=== PATIENT | male | born 1945 | race African-American/Black ===

== ENCOUNTER 2016-08-11 10:02 | Inpatient (IN) ==
[2016-08-11] MEDS ORDERED: ONDANSETRON 4 MG/2 ML VIAL IV STA (10:14)
[2016-08-11] MEDS ORDERED: methylPREDNISolone SOD SUC 125 MG/2 ML VIAL IV STA (10:14)
[2016-08-11] MEDS ORDERED: MORPHINE 2 MG/1 ML SYRINGE IV STA (10:14)
[2016-08-11] MEDS ORDERED: cefTRIAXone 1,000 MG in SODIUM CHLORIDE 0.9% 100 ML IV STA (10:14)
[2016-08-11] MEDS ORDERED: ASPIRIN 325 MG TABLET PO STA (10:14)
[2016-08-11] MEDS ORDERED: FUROSEMIDE 100 MG/10 ML VIAL IV STA (10:14)
[2016-08-11] MEDS ORDERED: ALBUTEROL 2.5 MG/3 ML NEB RESP TX SCH (10:30)
[2016-08-11] MEDS ORDERED: FUROSEMIDE 40 MG/4 ML VIAL ONE (10:44)
[2016-08-11] MEDS ORDERED: ONDANSETRON 4 MG/2 ML VIAL ONE (10:44)
[2016-08-11] MEDS ORDERED: MORPHINE 2 MG/1 ML SYRINGE ONE (10:44)
[2016-08-11] MEDS ORDERED: methylPREDNISolone SOD SUC 125 MG/2 ML VIAL ONE (10:45)
[2016-08-11] MEDS ORDERED: FUROSEMIDE 20 MG/2 ML VIAL ONE (10:45)
[2016-08-11] MEDS ORDERED: ASPIRIN 325 MG TABLET ONE (10:45)
--- NOTE | 2016-08-11 10:47 | XRay Report ---
Exam: XR chest 1V portable Date: 08/11/2016 10:16 AM Indication: Shortness of breath Comparison: 07/16/2009 Technical: AP Findings: Surgical suture scarring over the left chest. The heart is at upper limits of normal. Mild interstitial alveolar densities are present in the base regions. External cardiac leads are present. No obvious pneumothorax present. ASVD is present. Impression: 1. Previous lung resection left lateral chest 2. Alveolar interstitial edema with mild cardiac decompensation suspected 3. ASVD. PROCEDURE INTERPRETED AT [facility] DEPARTMENT OF RADIOLOGY Final Report Signed by: Dr. Fei Decker
--- NOTE | 2016-08-11 10:47 | Emergency Department Note ---
Navid Mckeon [place], am scribing for, and in the presence of, Hill Garay MD 10:22. Tanisha Mckeon Charles R, MD, personally performed the services described in this documentation, ascribed by Milad Shoemaker in my presence, and it is both accurate and complete . Arrival - Arrival Chief Complaint: Shortness of Breath ED Nursing Triage Note: c/o sob onset last night. pt takes a fluid pill and states that its not helping. Mode of Arrival: Stretcher Limitations: No Limitations Source: Patient Time Seen by Provider: 08/11/16 10:11 - History of Present Illness HPI Narrative: This is a 71 y/o black male presenting to the ED with c/o SOB that onset last night. He states he is currently taking his fluid pill but it is not working. Pt has a strong respiratory effort. His PMHx is consistent with HTN and COPD. He has a social history of smoking. Pt denies REBOLLEDO, vision change, fever, chills, nausea, vomiting, diarrhea, and pedal edema. Consistency: constant Severity: moderate Allergies/Adverse Reactions: Allergies Allergy/AdvReac Type Severity Reaction Status Date / Time No Known Allergies Allergy Unverified 08/11/16 10:24 Home Medications: Home Medications Medication Instructions Recorded Confirmed Type Acetamin/Codeine 300-30 Tab 1 - 2 tablet PO Q6H PRN 08/11/16 08/11/16 History [Tylenol/Codeine #3] Benztropine Mesylate 2 mg PO BID 08/11/16 08/11/16 History Enalapril Maleate 5 mg PO BID 08/11/16 08/11/16 History Potassium Chloride 20 meq PO DAILY 08/11/16 08/11/16 History fluPHENAZine decanoate 0.5 ml IJ Q21D 08/11/16 08/11/16 History [Fluphenazine Decanoate] Review of System - Review of System 12 point system: reviewed and no additional remarkable complaints except as stated - Review of System Constitutional: Absent: chills, fever, weakness Eyes: Absent: vision change Head/Ears/Nose/Throat: Absent: earache, nasal drainage Respiratory: Present: wheezing. Absent: cough Cardiovascular: Present: dyspnea on exertion. Absent: chest pain, syncope Gastrointestinal: Absent: abdominal pain, nausea, vomiting, diarrhea Genitourinary male: Absent: dysuria Musculoskeletal: Absent: arm pain, back pain, leg pain, neck pain Skin: Absent: rash Neurological: Absent: headache, weakness, numbness, confusion, vertigo Psychiatric: Absent: anxiety Endocrine: Absent: fatigue Hematological/Lymphatic: Absent: easy bleeding Allergic/Immunologic: Absent: facial swelling Medical,Surgical,& Family Hx - Medical History Cardio: History of: Hypertension Respiratory: History of: COPD - Social History Smoking Status: Smoker, status unknown Frequency of Alcohol Use: None Type of Drug Use: None Exam Vital Signs: Vital Signs Temperature 98.0 F 08/11/16 10:07 Pulse Rate 98 H 08/11/16 10:07 Respiratory Rate 40 H 08/11/16 10:07 Blood Pressure 136/109 08/11/16 10:07 O2 Sat by Pulse Oximetry 96 08/11/16 10:07 - General General appearance: alert, in distress (mild respiratory distress ), other ( malnourished ) - Head Head exam: Present: atraumatic, normocephalic, other (temporal wasting ) - Eye Eye exam: Present: normal appearance, PERRL, EOMI - ENT ENT exam: Present: normal exam, normal oropharynx, mucous membranes moist, TM's normal bilaterally, normal external ear exam - Neck Neck exam: Present: full ROM, trachea midline, other (JVD distention ). Absent : tenderness - Chest Chest inspection: Present: symmetric chest wall rise, other (barrel chest ). Absent: normal inspection, tenderness - Respiratory Respiratory exam: Present: accessory muscle use, rales, wheezes, other (crackles ; decreased breath sounds bilaterally; strong respiratory effort ). Absent: normal lung sounds bilaterally - Cardiovascular Cardiovascular exam: Present: normal rhythm, tachycardia. Absent: regular rate , normal heart sounds (muffled ) - Abdominal Exam Abdominal exam: Present: soft, normal bowel sounds. Absent: distention, tenderness - Extremities Exam Extremities exam: Present: normal inspection, full ROM, normal capillary refill. Absent: tenderness, pedal edema, calf tenderness - Back Exam Back exam: Present: normal inspection, full ROM. Absent: tenderness - Neurological Exam Neurological exam: Present: alert, oriented X3, CN II-XII intact, normal gait, reflexes normal - Psychiatric Psychiatric exam: Present: normal affect, normal mood - Skin Skin exam: Present: warm, dry, intact, normal color. Absent: rash, diaphoresis Course - Consultations Consultation #1: Hospitalist will admit patient Time: 11:16 Results - Labs CBC & BMP: 08/11/16 10:56 08/11/16 10:56 Lab Results: I have reviewed the patients labs Labs: Laboratory Tests 08/11/16 08/11/16 10:49 10:56 WBC 19.2 H RBC 4.66 Hgb 13.9 L Hct 41.8 L MCV 89.7 MCH 30 MCHC 33.3 RDW 13.8 Plt Count 199 MPV 11.3 Neut % (Auto) 10.9 L Lymph % (Auto) 71.6 H [place] % (Auto) 16.7 H Eos % (Auto) 0.5 Baso % (Auto) 0.2 Neut # (Auto) 2.1 Lymph # (Auto) 13.7 H [place] # (Auto) 3.2 H Eos # (Auto) 0.1 Baso # (Auto) 0.0 Immature Gran % 0.1 Nucleated RBC % 0.0 Immature Gran # 0.01 Nucleated RBCs # 0.00 ABG pH 7.367 ABG pCO2 48.4 H ABG pO2 80.2 ABG HCO3 27.2 H ABG Total CO2 28.6 H ABG O2 Saturation 94.8 L ABG Base Excess 1.2 FiO2 28.00 - Diagnostic Findings Procedure: Chest x-ray: image reviewed by me (previous lung resection left lateral chest; alveolar interstitial edema with mild cardiac decompensation suspected; ASVD. ) Critical Care Time Critical Care Time: Yes Total Critical Care Time: 60 Disposition Clinical Impression: Leukocytosis, Acute COPD exacerbation, Acute exacerbation of CHF (congestive heart failure), Hypoxia, Respiratory distress Case discussed with: patient Disposition: Still a Patient Condition: Guarded Time of Disposition: 11:17
[2016-08-11 11:04] LABS: ABG Base Excess 1.2 MMOL/L (-2.5-2.5); ABG HCO3 27.2 MMOL/L (20-26); ABG Oxygen Saturation 94.8 % (95-100); ABG PCO2 48.4 MM HG (35-48); ABG PH 7.367 (7.35-7.45); ABG PO2 80.2 MM HG (80-95); ABG TCO2 28.6 MMOL/L (23-27); Allen Test Positive
[2016-08-11 11:06] LABS: Basophils % 0.2 % (0.0-0.8); Eosinophils # 0.1 10*3/uL (0.0-0.87); Eosinophils % 0.5 % (0.00-10.9); Hematocrit 41.8 VOL% (42.0-52.0); Hemoglobin 13.9 GM/DL (14.0-18.0); Immature Granulocytes % 0.1 %; Immature Granulocytes Absolute 0.01 #; Lymphocytes # 13.7 10*3/uL (1.4-4.0); Lymphocytes % 71.6 % (21.2-54.2); Mean Corpuscular HGB Conc 33.3 GM/DL (32-36); Mean Corpuscular Hemoglobin 30 PG (27-34); Mean Corpuscular Volume 89.7 FL (87-102); Mean Platelet Volume 11.3 FL (9.6-12.0); Monocytes # 3.2 10*3/uL (0.11-0.8); Monocytes % 16.7 % (1.7-12.7); Neutrophils # 2.1 10*3/uL (1.4-7.4); Neutrophils % 10.9 % (38.7-73.9); Platelet Count 199 T/CUMM (130-400); Red Blood Count 4.66 MC/CUMM (3.8-5.5); Red Cell Distribution Width 13.8 % (9.3-17.3); White Blood Count 19.2 T/CUMM (4-12)
[2016-08-11 11:17] LABS: D-Dimer 0.6 MG/L FEU
[2016-08-11 11:31] LABS: Atypical Lymphocytes Few; Hypochromasia 1+; Lymphocytes 81 % (20-55); Segmented Neutrophils 12 % (50-85); Smudge Cells Few; Total Cells Counted 100
[2016-08-11 11:32] LABS: Microcytosis Slight; Platelet Estimate Adequate
[2016-08-11 11:37] LABS: Alanine Aminotransferase 50 U/L (16-61); Albumin 3.6 G/DL (3.4-5.0); Alkaline Phosphatase 90 U/L (45-117); Aspartate Amino Transferase 39 U/L (0-37); Bilirubin,Total < 0.39 MG/DL (0.2-1.0); Blood Urea Nitrogen 15 MG/DL (7-18); Calcium 8.7 MG/DL (8.5-10.1); Glucose 99 MG/DL (74-106); Magnesium 2.1 MG/DL (1.8-2.4); Osmolality,Calculated 281.3 MOS/KG (273-304); Potassium 4.5 MMOL/L (3.5-5.1); Sodium 141 MMOL/L (136-145); Total Protein 6.8 G/DL (6.4-8.3)
[2016-08-11 11:38] LABS: Troponin I Only 0.065 NG/ML (0.00-0.045)
--- NOTE | 2016-08-11 12:00 | Hospitalist History & Physical ---
Assessment and Plan (1) Compensated respiratory acidosis Status: Acute Assessment and plan: Respiratory status has slightly improved since diuresis; may need bi-pap if conditions worsens. Current Visit: Yes (2) Acute on chronic congestive heart failure Status: Acute Assessment and plan: BNP at 1722; we will diurese and recheck chest x-ray in AM. Will obtain echo to assess structural function. Current Visit: Yes (3) Leukocytosis Status: Acute Assessment and plan: WBC noted at 19.2; will obtain denise cultures and start empiric antibiotic coverage. Will recheck labs in AM. Current Visit: Yes History of Present Illness Chief complaint: shortness of breath History of present illness: This is a very pleasant 71 year old male that presented to the ED at [facility] with a chief compliant of shortness of breath. The patient has a rather complex medical history significant for congestive heart failure, hypertension, schizophrenia, and nicotine abuse. He reported the onset of symptoms on last night . He states "my fluid pill is not working". At the time of ED presentation, he was noted to be in respiratory distress with use of his accessory muscles. He was quickly assessed. He was given Lasix 60 mg IV and inhaled bronchodilators. Labs were obtained which revealed leukocytosis with a white blood cell count at 19.2 and BNP at 1722. Cardiac enzymes were noted at 0.065. ABG was obtained; which reported a PH at 7.367, PCO2 at 48.4, and HCO3 at 28.6. Chest radiograph showed the presence of a previous lung resection left lateral chest; alveolar interstitial edema with mild cardiac decompensation suspected; ASVD. After brief discussion with both Dr. Garay and Dr. Stubbs, the patient will be admitted to the hospitalist service for continuation of care. Home Medications Medication Instructions Recorded Confirmed Type Acetamin/Codeine 300-30 Tab 1 - 2 tablet PO Q6H PRN 08/11/16 08/11/16 History [Tylenol/Codeine #3] Benztropine Mesylate 2 mg PO BID 08/11/16 08/11/16 History Enalapril Maleate 5 mg PO BID 08/11/16 08/11/16 History Potassium Chloride 20 meq PO DAILY 08/11/16 08/11/16 History fluPHENAZine decanoate 0.5 ml IJ Q21D 08/11/16 08/11/16 History [Fluphenazine Decanoate] Allergies Allergy/AdvReac Type Severity Reaction Status Date / Time No Known Allergies Allergy Unverified 08/11/16 10:24 Medical,Surgical,& Family Hx - Medical History Cardio: History of: Hypertension Respiratory: History of: COPD Other: History of: Miscellaneous Medical Problems (Schizophrenia) - Social History Smoking Status: Current every day smoker Have you smoked in the last 12 months: Yes Time spent discussing smoking cessation with patient: more than 10 minutes Frequency of Alcohol Use: None Type of Drug Use: None 12 point system: reviewed and no additional remarkable complaints except as stated Exam - Constitutional Vitals: Period Temp Pulse Resp BP Sys/Gonzalez Pulse Ox Last 24 Hr 98.0 F-98.0 F 98-98 40-40 136-136/109-109 96 General appearance: severe distress, under weight - Head Head exam: Present: normal inspection, atraumatic - Eye Eye exam: Present: EOMI. Absent: conjunctival injection Pupils: Present: TAMIKO, normal accommodation - ENT ENT exam: Present: normal exam, normal external ear exam - Neck Neck exam: Present: normal inspection. Absent: lymphadenopathy, meningismus, tenderness, thyromegaly - Respiratory Respiratory exam: Present: accessory muscle use, rales - Cardiovascular Cardiovascular exam: Present: regular rate and rhythm. Absent: carotid bruit, diastolic murmur, gallop, JVD, rubs - GI/Abdominal GI/Abdominal exam: Present: normal bowel sounds, soft. Absent: firm, guarding, mass - Extremities Exam Extremities exam: Present: normal inspection, normal capillary refill, full ROM. Absent: edema - Back Exam Back exam: Present: normal inspection - Neurological Exam Neurological exam: Present: alert, oriented X3, CN II-XII intact - Psychiatric Psychiatric exam: Present: anxious - Skin Skin exam: Present: normal color, warm, dry Results - Labs CBC & BMP: 08/11/16 10:56 08/11/16 10:56 Lab Results: I have reviewed the past 24 hour labs
[2016-08-11] MEDS ORDERED: cefTRIAXone 1,000 MG VIAL ONE (13:19)
[2016-08-11] MEDS ORDERED: FLUPHENAZINE DECANOATE IJ SCH (15:08)
[2016-08-11] MEDS: CARVEDILOL 6.25 MG TABLET PO SCH (16:40)
--- NOTE | 2016-08-11 16:53 | ECHO Report ---
Elizabeth Donovan Exam Date: 08/11/2016 13:50 Referring Physician: Technologist: Bernie Rendon Age: 71 Ht (in): 71 Wt (lb): 145 Gender: M Exam Location: [facility] Echo Indications: BP: 136 / 109 HR: 74 Rhythm: Sinus Technical Quality: IMPRESSIONS Normal left ventricular cavity size. Left ventricular ejection fraction is estimated at 25 %. Grade III/IV diastolic dysfunction (restrictive filling pattern), severely elevated filling pressures. The right ventricle is normal in size and function. The right atrium is mildly enlarged. The left atrium is mildly enlarged. Mildly thickened mitral valve. Trace mitral valve regurgitation. Aortic valve sclerosis. Trace aortic valve regurgitation. Mild tricuspid valve regurgitation. PAP40 mmHg. Trace pulmonary valve regurgitation. Normal pericardium without effusion. Normal ascending aorta dimension. MEASUREMENTS (Male / Female) Normal Values 2D ECHO LV Diastolic Diameter PLAX 5.7 cm 4.2 - 5.9 / 3.9 - 5.3 cm LV Systolic Diameter PLAX 5.1 cm LV Fractional Shortening PLAX 11.5 % IVS Diastolic Thickness 1.1 cm 0.6 - 1.0 / 0.6 - 0.9 cm LVPW Diastolic Thickness 1.2 cm 0.6 - 1.0 / 0.6 - 0.9 cm RV Internal Dim ED PLAX 3.7 cm Aortic Root Diameter 3.5 cm LA Systolic Diameter LX 4.0 cm 3.0 - 4.0 / 2.7 - 3.8 cm DOPPLER TR Peak Velocity 274.0 cm/s TR Peak Gradient 30.0 mmHg FINDINGS Left Ventricle Normal left ventricular cavity size. Left ventricular ejection fraction is estimated at 25 %. left ventricular hypertrophy. Grade III/IV diastolic dysfunction (restrictive filling pattern), severely elevated filling pressures. Right Ventricle The right ventricle is normal in size and function. Right Atrium The right atrium is mildly enlarged. Left Atrium The left atrium is mildly enlarged. Mitral Valve Mildly thickened mitral valve. Trace mitral valve regurgitation. Aortic Valve Aortic valve sclerosis. Trace aortic valve regurgitation. Tricuspid Valve Morphologically normal tricuspid valve. Mild tricuspid valve regurgitation. PAP40 mmHg. Pulmonic Valve Morphologically normal pulmonic valve. Trace pulmonary valve regurgitation. Pericardium Normal pericardium without effusion. Aorta Normal ascending aorta dimension. Gerry Anurag (Electronically Signed) Final Date: 11 Aug 2016 16:52
[2016-08-11] MEDS: ENALAPRIL 10 MG TABLET PO SCH (20:53)
[2016-08-11] MEDS: BENZTROPINE 1 MG TABLET PO SCH (20:53)
[2016-08-11 22:21] LABS: Apearance,Urine CLEAR (Clear); Bilirubin,Urine Negative (Negative); Blood, Urine Negative (Negative); Glucose,Urine (UA) Negative (Negative); Ketones,Urine Negative (Negative); Nitrite,Urine Negative (Negative); Protein,Urine Negative; RBC,Urine 1 /HPF (0-4); Urine Color Yellow (Yellow); Urine Specific Gravity 1.015 (1.001-1.035); Urine Urobilinogen < 2.0 EU/DL (0.2-1.0); WBC,Urine <1 /HPF (0-6)
[2016-08-12 01:16] LABS: Basophils % 0.1 % (0.0-0.8); Hematocrit 38.3 VOL% (42.0-52.0); Hemoglobin 12.8 GM/DL (14.0-18.0); Immature Granulocytes % 0.2 %; Immature Granulocytes Absolute 0.04 #; Lymphocytes # 16.2 10*3/uL (1.4-4.0); Lymphocytes % 74.9 % (21.2-54.2); Mean Corpuscular HGB Conc 33.4 GM/DL (32-36); Mean Corpuscular Hemoglobin 29 PG (27-34); Mean Platelet Volume 12.1 FL (9.6-12.0); Monocytes # 1.9 10*3/uL (0.11-0.8); Monocytes % 8.8 % (1.7-12.7); NRBC # 0.02 10*3/uL; Neutrophils # 3.5 10*3/uL (1.4-7.4); Platelet Count 215 T/CUMM (130-400); Red Blood Count 4.35 MC/CUMM (3.8-5.5); Red Cell Distribution Width 13.6 % (9.3-17.3); White Blood Count 21.7 T/CUMM (4-12)
[2016-08-12 01:44] LABS: Calcium 8.5 MG/DL (8.5-10.1); Osmolality,Calculated 282.4 MOS/KG (273-304); Potassium 4.6 MMOL/L (3.5-5.1)
[2016-08-12 02:58] LABS: Lymphocytes 72 % (20-55); Segmented Neutrophils 25 % (50-85); Smudge Cells Few; Total Cells Counted 100
[2016-08-12 02:59] LABS: Platelet Estimate Adequate; Target Cells Slight
[2016-08-12] MEDS: CARVEDILOL 6.25 MG TABLET PO SCH ×2 (09:04→16:40)
[2016-08-12] MEDS: POTASSIUM CHLORIDE 20 MEQ TABLET PO SCH (09:04)
[2016-08-12] MEDS: ENALAPRIL 10 MG TABLET PO SCH ×2 (09:04→20:44)
[2016-08-12] MEDS: BENZTROPINE 1 MG TABLET PO SCH ×2 (09:05→20:44)
[2016-08-12] MEDS: cefTRIAXone 1,000 MG in SODIUM CHLORIDE 0.9% 100 ML IV SCH (09:05)
[2016-08-12] MEDS: FUROSEMIDE 40 MG/4 ML VIAL IV SCH (09:09)
--- NOTE | 2016-08-12 11:26 | Hospitalist Progress Note ---
Assessment and Plan - Time spent with patient Time spent with patient: Greater than 30 minutes (1) Acute on chronic congestive heart failure Status: Acute Assessment and plan: Systolic and diastolic heart failure noted. Continue diuresis. Given the severity of his congestive heart failure will ask cardiology to evaluate for any further recommendations. Current Visit: Yes (2) CLL (chronic lymphocytic leukemia) Status: Acute Assessment and plan: Patient follows an oncologist as an outpatient. Current Visit: Yes Hospitalist: Subjective Interval history: Mr. Donovan was admitted for management of congestive heart failure with exacerbation and states he feels much better. No overnight events. Exam - Constitutional Vitals: Period Temp Pulse Resp BP Sys/Gonzalez Pulse Ox Last 24 Hr 97.1 F-99.9 F 69-94 18-44 96-118/66-78 90-94 General appearance: no acute distress, under weight - Head Head exam: Present: normal inspection, normocephalic, atraumatic - Eye Eye exam: Present: EOMI Pupils: Present: TAMIKO - ENT ENT exam: Present: normal exam - Neck Neck exam: Present: normal inspection - Respiratory Respiratory exam: Present: clear to auscultation bilaterally. Absent: rhonchi, wheezes - Cardiovascular Cardiovascular exam: Present: regular rate and rhythm, systolic murmur. Absent : gallop, rubs - GI/Abdominal GI/Abdominal exam: Present: normal bowel sounds, soft. Absent: distended, firm , guarding, tenderness, rebound - Extremities Exam Extremities exam: Present: normal inspection. Absent: calf tenderness, edema Results - Labs CBC & BMP: 08/12/16 00:26 08/12/16 00:26 Lab Results: I have reviewed the past 24 hour labs
--- NOTE | 2016-08-12 12:04 | Discharge Summary ---
Hospital Course - Hospital Course Hospital Course: Mr. Donovan was admitted for management of acute digestive heart failure exacerbation. He was initiated on IV Lasix with improvement in symptoms. An echocardiogram was obtained which revealed an ejection fraction of 25% and grade 3/ 4 diastolic dysfunction. Cardiology was consulted for any further recommendations and patient's medications were adjusted accordingly. By discharge she had met maximum benefit of hospitalization. I spent 33 minutes coordinating this discharge. - Time spent with patient Time with patient DS: Greater than 30 minutes Discharge Plan - Discharge Data Disposition: Disch To Home/Self Care Condition at Discharge: Stable Discharge Diet: advance to your usual diet Activity: resume usual activities as tolerated Hygiene: no restrictions - Discharge Medications New Carvedilol [Coreg] 6.25 mg PO BID W/MEALS #60 tablet Furosemide Tab [Lasix Tab] 40 mg PO DAILY #30 tablet Continue Benztropine Mesylate 2 mg PO BID Acetamin/Codeine 300-30 Tab [Tylenol/Codeine #3] 1 - 2 tablet PO Q6H PRN PRN Reason: Pain fluPHENAZine decanoate [Fluphenazine Decanoate] 0.5 ml IJ Q21D Potassium Chloride 20 meq PO DAILY Enalapril Maleate 5 mg PO BID - Follow Up or Referral - Forms/Instructions Exam - Constitutional Vitals: Period Temp Pulse Resp BP Sys/Gonzalez Pulse Ox Last 24 Hr 97.1 F-99.9 F 69-94 18-44 96-118/66-78 90-98 General appearance: normal weight, no acute distress - Head Head exam: Present: normal inspection, normocephalic, atraumatic - Eye Eye exam: Present: EOMI Pupils: Present: TAMIKO - ENT ENT exam: Present: normal exam - Neck Neck exam: Present: normal inspection - Respiratory Respiratory exam: Present: clear to auscultation bilaterally. Absent: accessory muscle use, prolonged expiratory phase, wheezes - Cardiovascular Cardiovascular exam: Present: regular rate and rhythm. Absent: bradycardia, irregular rhythm, systolic murmur - GI/Abdominal GI/Abdominal exam: Present: normal bowel sounds. Absent: ascites, distended, hypoactive bowel sounds, tenderness - Extremities Exam Extremities exam: Present: normal inspection Discharge Results Labs on day of discharge: Labs from last 24 hours 08/12/16 08/12/16 08/12/16 00:26 00:26 00:26 WBC 21.7 H RBC 4.35 Hgb 12.8 L Hct 38.3 L MCV 88.0 MCH 29 MCHC 33.4 RDW 13.6 Plt Count 215 MPV 12.1 H Neut % (Auto) 16.0 L Lymph % (Auto) 74.9 H [place] % (Auto) 8.8 Eos % (Auto) 0.0 Baso % (Auto) 0.1 Neut # (Auto) 3.5 Lymph # (Auto) 16.2 H [place] # (Auto) 1.9 H Eos # (Auto) 0.0 Baso # (Auto) 0.0 Total Counted 100 Immature Gran % 0.2 Nucleated RBC % 0.1 Immature Gran # 0.04 Segmented Neutrophils 25 L Lymphocytes 72 H Monocytes 3 Nucleated RBCs # 0.02 Smudge Cells Few Platelet Estimate Adequate Target Cells Slight Sodium 140 Potassium 4.6 Chloride 103 Carbon Dioxide 30 Anion Gap 11.6 BUN 21 H Creatinine 1.10 GFR Calculation 83 BUN/Creatinine Ratio 19.00 Glucose 113 H Calculated Osmolality 282.4 Lactic Acid Calcium 8.5 Troponin I 0.032 TSH 3rd Generation Urine Color Urine Appearance Urine pH Ur Specific [place] Urine Protein Urine Glucose (UA) Urine Ketones Urine Blood Urine Nitrate Urine Bilirubin Urine Urobilinogen Urine Leukocytes Urine RBC Urine WBC Ur Culture Indicated? 08/11/16 08/11/16 08/11/16 Unknown 22:00 18:21 WBC RBC Hgb Hct MCV MCH MCHC RDW Plt Count MPV Neut % (Auto) Lymph % (Auto) [place] % (Auto) Eos % (Auto) Baso % (Auto) Neut # (Auto) Lymph # (Auto) [place] # (Auto) Eos # (Auto) Baso # (Auto) Total Counted Immature Gran % Nucleated RBC % Immature Gran # Segmented Neutrophils Lymphocytes Monocytes Nucleated RBCs # Smudge Cells Platelet Estimate Target Cells Sodium Potassium Chloride Carbon Dioxide Anion Gap BUN Creatinine GFR Calculation BUN/Creatinine Ratio Glucose Calculated Osmolality Lactic Acid Calcium Troponin I 0.036 TSH 3rd Generation 1.560 Urine Color Yellow Urine Appearance Clear Urine pH 6.0 Ur Specific [place] 1.015 Urine Protein Negative Urine Glucose (UA) Negative Urine Ketones Negative Urine Blood Negative Urine Nitrate Negative Urine Bilirubin Negative Urine Urobilinogen < 2.0 H Urine Leukocytes Negative Urine RBC 1 Urine WBC <1 Ur Culture Indicated? Not indicated 08/11/16 12:55 WBC RBC Hgb Hct MCV MCH MCHC RDW Plt Count MPV Neut % (Auto) Lymph % (Auto) [place] % (Auto) Eos % (Auto) Baso % (Auto) Neut # (Auto) Lymph # (Auto) [place] # (Auto) Eos # (Auto) Baso # (Auto) Total Counted Immature Gran % Nucleated RBC % Immature Gran # Segmented Neutrophils Lymphocytes Monocytes Nucleated RBCs # Smudge Cells Platelet Estimate Target Cells Sodium Potassium Chloride Carbon Dioxide Anion Gap BUN Creatinine GFR Calculation BUN/Creatinine Ratio Glucose Calculated Osmolality Lactic Acid 2.0 Calcium Troponin I TSH 3rd Generation Urine Color Urine Appearance Urine pH Ur Specific [place] Urine Protein Urine Glucose (UA) Urine Ketones Urine Blood Urine Nitrate Urine Bilirubin Urine Urobilinogen Urine Leukocytes Urine RBC Urine WBC Ur Culture Indicated? DS: Provider Date of admission: 08/11/16 12:00 Primary care physician: . No PCP Attending physician on admission: Tila Stubbs MD Discharging clinician: Dianelys Pearson MD Expected date of discharge: 08/13/16
--- NOTE | 2016-08-12 16:51 | Cardiology Consult Note ---
History of Present Illness - Data of Consult Patient: new to practice - Consult Narrative History of present illness: Cardiology consult 71-year-old man with exertional dyspnea and easy fatigability admitted with decompensated heart failure. Chest x-ray shows mild cardiomegaly with cephalization of flow. BNP level 1722. He has been treated with Lasix and nebs and carvedilol was added to his regimen and he is feeling better. The patient has a documented cardiomyopathy. He was last seen July 15, 2009 for congestive heart failure. Echo Doppler at that time showed ejection fraction of 25-30% by Dr. Olea. He sleeps on one pillow and has nocturia 2 or 3 times every night. He denies chest pain or syncope. His appetite is fair. He weighs 65.7 kg. He has been smoking 1/2-1 pack of cigarettes daily since age 15. He quit alcohol 12 years ago. No ulcer disease. Denies melena. No history of stroke. Patient reports she has had 2 nervous breakdowns and has been on Cogentin for over 10 years. To me he has impressive involuntary oral and facial movement and his limbs which looks like tardive dyskinesia. The patient is and lives with his friend. He has 6 children. 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 Surgeries pelvic fracture and left lobectomy at [place] Echo Doppler done yesterday showed ejection fraction of 25% with severe global hypokinesis with grade 3 diastolic dysfunction. Mildly dilated left atrium, aortic valve sclerosis, mild TR PA pressure 40 with no effusion. 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 Arellano at [place] Suspect tardive dyskinesia, has been on Cogentin for over 10 years Plan Continue enalapril 5 mg twice daily Continue carvedilol 6.25 mg twice daily KCl 20 mg daily 40 mg IV Lasix BMP in a.m. Probable home tomorrow. Patient is anxious to go home. EKG CC: Dianelys Pearson MD - Home Medications and Allergies Home Medications: Home Medications Medication Instructions Recorded Confirmed Type Acetamin/Codeine 300-30 Tab 1 - 2 tablet PO Q6H PRN 08/11/16 08/11/16 History [Tylenol/Codeine #3] Benztropine Mesylate 2 mg PO BID 08/11/16 08/11/16 History Enalapril Maleate 5 mg PO BID 08/11/16 08/11/16 History Potassium Chloride 20 meq PO DAILY 08/11/16 08/11/16 History fluPHENAZine decanoate 0.5 ml IJ Q21D 08/11/16 08/11/16 History [Fluphenazine Decanoate] Allergies/Adverse Reactions: Allergies Allergy/AdvReac Type Severity Reaction Status Date / Time No Known Allergies Allergy Unverified 08/11/16 10:24 Medical,Surgical,& Family Hx - Medical History Cardio: History of: Hypertension Respiratory: History of: COPD Other: History of: Miscellaneous Medical Problems (Schizophrenia) - Social History Smoking Status: Smoker, status unknown Frequency of Alcohol Use: None Type of Drug Use: None Physical Examination Vital Signs Temp Pulse Resp BP Pulse Ox 98.0 F 98 H 40 H 136/109 96 08/11/16 10:07 08/11/16 10:07 08/11/16 10:07 08/11/16 10:07 08/11/16 10:07 Result/EKG - Labs CBC & BMP: 08/12/16 00:26 08/12/16 00:26 Labs: Laboratory Results - last 24 hr 08/11/16 08/11/16 08/12/16 18:21 22:00 00:26 WBC RBC Hgb Hct MCV MCH MCHC RDW Plt Count MPV Neut % (Auto) Lymph % (Auto) [place] % (Auto) Eos % (Auto) Baso % (Auto) Neut # (Auto) Lymph # (Auto) [place] # (Auto) Eos # (Auto) Baso # (Auto) Total Counted Immature Gran % Nucleated RBC % Immature Gran # Segmented Neutrophils Lymphocytes Monocytes Nucleated RBCs # Smudge Cells Platelet Estimate Target Cells Sodium Potassium Chloride Carbon Dioxide Anion Gap BUN Creatinine GFR Calculation BUN/Creatinine Ratio Glucose Calculated Osmolality Calcium Troponin I 0.036 0.032 Urine Color Yellow Urine Appearance Clear Urine pH 6.0 Ur Specific [place] 1.015 Urine Protein Negative Urine Glucose (UA) Negative Urine Ketones Negative Urine Blood Negative Urine Nitrate Negative Urine Bilirubin Negative Urine Urobilinogen < 2.0 H Urine Leukocytes Negative Urine RBC 1 Urine WBC <1 Ur Culture Indicated? Not indicated 08/12/16 08/12/16 00:26 00:26 WBC 21.7 H RBC 4.35 Hgb 12.8 L Hct 38.3 L MCV 88.0 MCH 29 MCHC 33.4 RDW 13.6 Plt Count 215 MPV 12.1 H Neut % (Auto) 16.0 L Lymph % (Auto) 74.9 H [place] % (Auto) 8.8 Eos % (Auto) 0.0 Baso % (Auto) 0.1 Neut # (Auto) 3.5 Lymph # (Auto) 16.2 H [place] # (Auto) 1.9 H Eos # (Auto) 0.0 Baso # (Auto) 0.0 Total Counted 100 Immature Gran % 0.2 Nucleated RBC % 0.1 Immature Gran # 0.04 Segmented Neutrophils 25 L Lymphocytes 72 H Monocytes 3 Nucleated RBCs # 0.02 Smudge Cells Few Platelet Estimate Adequate Target Cells Slight Sodium 140 Potassium 4.6 Chloride 103 Carbon Dioxide 30 Anion Gap 11.6 BUN 21 H Creatinine 1.10 GFR Calculation 83 BUN/Creatinine Ratio 19.00 Glucose 113 H Calculated Osmolality 282.4 Calcium 8.5 Troponin I Urine Color Urine Appearance Urine pH Ur Specific [place] Urine Protein Urine Glucose (UA) Urine Ketones Urine Blood Urine Nitrate Urine Bilirubin Urine Urobilinogen Urine Leukocytes Urine RBC Urine WBC Ur Culture Indicated?
[2016-08-13] MEDS: BENZTROPINE 1 MG TABLET PO SCH (08:11)
[2016-08-13] MEDS: cefTRIAXone 1,000 MG in SODIUM CHLORIDE 0.9% 100 ML IV SCH (08:12)
[2016-08-13] MEDS: ENALAPRIL 10 MG TABLET PO SCH (08:12)
[2016-08-13] MEDS: FUROSEMIDE 40 MG/4 ML VIAL IV SCH (08:12)
[2016-08-13] MEDS: POTASSIUM CHLORIDE 20 MEQ TABLET PO SCH (08:12)
[2016-08-13] MEDS: CARVEDILOL 6.25 MG TABLET PO SCH (08:12)
--- NOTE | 2016-08-13 08:56 | EKG Report ---
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
[2016-08-13 09:04] VITALS: BP 113/70
== END 2016-08-13 12:30 | disposition home or self-care (01) | DRG 292 ==
LOC: EDBD → EDUNIT# → N.ED 10:02 → N.EDINP 12:00 → SUATTDRO 12:00 → N.2E 15:00
PROVIDERS: ADMIT Internal Medicine; ATTEND Internal Medicine

== ENCOUNTER 2018-08-07 18:49 | Inpatient (IN) ==
[2018-08-07] MEDS ORDERED: FUROSEMIDE 100 MG/10 ML VIAL IV STA (19:15)
[2018-08-07 19:45] LABS: Albumin 2.1 G/DL (3.4-5.0); Bilirubin,Total 0.4 MG/DL (0.2-1.0); Calcium 8.4 MG/DL (8.5-10.1); Osmolality,Calculated 263.1 MOS/KG (273-304); Total Protein 5.4 G/DL (6.4-8.3)
[2018-08-07] MEDS ORDERED: CEFEPIME 2,000 MG in SODIUM CHLORIDE 0.9% 100 ML IV STA (20:12)
[2018-08-07] MEDS ORDERED: VANCOMYCIN INJ 1,000 MG in SODIUM CHLORIDE 0.9% 250 ML IV ONE ×2 (20:13→20:30)
[2018-08-07 20:39] LABS: Basophils # 0.1 10*3/uL (0.0-0.2); Hematocrit 26.7 VOL% (42.0-52.0); Hemoglobin 6.7 GM/DL (14.0-18.0); Immature Granulocytes % 0.3 %; Immature Granulocytes Absolute 0.98 #; Lymphocytes # 280.6 10*3/uL (1.4-4.0); Lymphocytes % 96.1 % (21.2-54.2); Mean Corpuscular HGB Conc 25.1 GM/DL (32-36); Mean Corpuscular Volume 101.1 FL (87-102); Mean Platelet Volume 11.1 FL (9.6-12.0); Monocytes % 1.5 % (1.7-12.7); Neutrophils % 2.1 % (38.7-73.9); Platelet Count 219 T/CUMM (130-400); Red Blood Count 2.64 MC/CUMM (3.8-5.5)
[2018-08-07 20:42] LABS: White Blood Count 292.1 T/CUMM (4-12)
[2018-08-07] MEDS ORDERED: CEFEPIME 2,000 MG VIAL ONE (20:51)
[2018-08-07] MEDS ORDERED: ALBUTEROL/IPRATROPIUM 3 ML NEB RESP TX STA (20:57)
[2018-08-07] MEDS ORDERED: SODIUM CHLORIDE 0.9% 1,000 ML IV STA (21:07)
[2018-08-07 21:23] LABS: Apearance,Urine CLEAR (Clear); Bilirubin,Urine Negative (Negative); Blood, Urine Negative (Negative); Glucose,Urine (UA) Negative (Negative); Hyaline Casts,Urine 3 /LPF (0-3); Ketones,Urine Negative (Negative); Mucus,Urine Occasional /LPF (Occasional); Nitrite,Urine Negative (Negative); Protein,Urine Negative; RBC,Urine 1 /HPF (0-4); Urine Color Straw (Yellow); Urine Specific Gravity 1.008 (1.001-1.035); Urine Urobilinogen < 2.0 EU/DL (0.2-1.0)
[2018-08-07] MEDS ORDERED: ACETAMINOPHEN 325 MG TABLET PO PRN (22:00)
[2018-08-07] MEDS ORDERED: SODIUM POLYSTYRENE SULFATE 15 GM/60 ML BOTTLE PO ONE (22:41)
[2018-08-07 23:05] LABS: ABG Base Excess 2.9 MMOL/L (-2.5-2.5); ABG Oxygen Saturation 93.1 % (95-100); ABG PCO2 47.3 MM HG (35-48); ABG PH 7.386 (7.35-7.45); ABG PO2 71.7 MM HG (80-95); ABG TCO2 26.6 MMOL/L (23-27); Allen Test Positive
[2018-08-07] MEDS: ALBUTEROL/IPRATROPIUM 3 ML NEB RESP TX SCH (23:50)
[2018-08-08 00:53] LABS: Hematocrit 26.3 VOL% (42.0-52.0); Immature Granulocytes % 0.4 %; Immature Granulocytes Absolute 1.05 #; Lymphocytes # 266.6 10*3/uL (1.4-4.0); Lymphocytes % 95.6 % (21.2-54.2); Mean Corpuscular HGB Conc 25.5 GM/DL (32-36); Mean Corpuscular Volume 100.4 FL (87-102); Mean Platelet Volume 10.7 FL (9.6-12.0); Monocytes % 1.6 % (1.7-12.7); Neutrophils % 2.4 % (38.7-73.9); Platelet Count 214 T/CUMM (130-400); Red Blood Count 2.62 MC/CUMM (3.8-5.5)
[2018-08-08] MEDS ORDERED: SODIUM CHLORIDE 0.9% 1,000 ML IV SCH (01:00)
[2018-08-08 01:01] LABS: Hemoglobin 6.7 GM/DL (14.0-18.0)
[2018-08-08 01:09] LABS: Albumin 1.9 G/DL (3.4-5.0); Bilirubin,Total 0.6 MG/DL (0.2-1.0); Calcium 8.4 MG/DL (8.5-10.1); Osmolality,Calculated 265.1 MOS/KG (273-304); Total Protein 5.8 G/DL (6.4-8.3)
[2018-08-08 01:10] LABS: Troponin I < 0.015 NG/ML (0.00-0.045)
[2018-08-08 01:31] LABS: Lymphocytes 99 % (20-55); Segmented Neutrophils 1 % (50-85); Smudge Cells Many; Total Cells Counted 100
[2018-08-08] MEDS: ONDANSETRON 4 MG/2 ML VIAL IV PRN (01:31)
[2018-08-08 01:32] LABS: Anisocytosis 1+; Hypochromasia 1+; Platelet Estimate Adequate
[2018-08-08] MEDS: PIPERACILLIN/TAZOBACTAM 3,375 MG in SODIUM CHLORIDE 0.9% 100 ML IV SCH ×2 (01:34→09:30)
[2018-08-08 01:48] LABS: ABG Base Excess 3.3 MMOL/L (-2.5-2.5); ABG HCO3 27.1 MMOL/L (20-26); ABG PCO2 46.6 MM HG (35-48); ABG PH 7.398 (7.35-7.45); ABG TCO2 26.2 MMOL/L (23-27); Allen Test Positive; Pt O2 Delivery Device BIPAP
[2018-08-08] MEDS: ALBUTEROL/IPRATROPIUM 3 ML NEB RESP TX SCH ×6 (03:35→23:04)
[2018-08-08] MEDS: VANCOMYCIN INJ 1,000 MG in SODIUM CHLORIDE 0.9% 250 ML IV SCH ×3 (07:10→22:02)
[2018-08-08 07:16] LABS: Lymphocytes 94 % (20-55); Segmented Neutrophils 5 % (50-85)
[2018-08-08 07:17] LABS: Hypersegmented Neutrophil Few; Hypochromasia 2+; Microcytosis Slight; Smudge Cells Moderate
[2018-08-08 07:18] LABS: Platelet Estimate Normal; Total Cells Counted 100
[2018-08-08] MEDS: ENOXAPARIN 40 MG/0.4 ML SYRINGE SUBCUT SCH (07:30)
[2018-08-08 07:47] LABS: Troponin I < 0.015 NG/ML (0.00-0.045)
[2018-08-08] MEDS ORDERED: SODIUM CHLORIDE 0.9% 1,000 ML IV PRN ×2 (08:25→13:02)
[2018-08-08] MEDS: ESCITALOPRAM 10 MG TABLET PO SCH (08:55)
[2018-08-08] MEDS: ASPIRIN EC 81 MG TABLET PO SCH (08:56)
[2018-08-08] MEDS: PANTOPRAZOLE 40 MG TABLET PO SCH (08:56)
[2018-08-08] MEDS: TAMSULOSIN 0.4 MG CAPSULE PO SCH (08:56)
[2018-08-08] MEDS: ATORVASTATIN 40 MG TABLET PO SCH (08:56)
[2018-08-08] MEDS ORDERED: FUROSEMIDE 40 MG TABLET PO SCH (09:00)
[2018-08-08] MEDS ORDERED: methylPREDNISolone SOD SUC 40 MG/1 ML VIAL IV ONE (11:37)
[2018-08-08] MEDS ORDERED: ALBUTEROL 2.5 MG/3 ML NEB RESP TX ONE (11:37)
[2018-08-08 11:57] LABS: ABG Base Excess 4.4 MMOL/L (-2.5-2.5); ABG HCO3 29.2 MMOL/L (20-26); ABG Oxygen Saturation 88.7 % (95-100); ABG PCO2 45.6 MM HG (35-48); ABG PH 7.425 (7.35-7.45); ABG PO2 59.9 MM HG (80-95); ABG TCO2 30.6 MMOL/L (23-27)
[2018-08-08 11:58] LABS: Allen Test Positive; Pt O2 Delivery Device BIPAP
[2018-08-08] MEDS: methylPREDNISolone SOD SUC 40 MG/1 ML VIAL IV SCH ×2 (12:28→22:05)
[2018-08-08 12:35] LABS: Hematocrit 24.2 VOL% (42.0-52.0); Immature Granulocytes % 0.4 %; Immature Granulocytes Absolute 0.94 #; Lymphocytes # 244.8 10*3/uL (1.4-4.0); Lymphocytes % 95.4 % (21.2-54.2); Mean Corpuscular HGB Conc 25.2 GM/DL (32-36); Mean Corpuscular Volume 101.3 FL (87-102); Mean Platelet Volume 11.3 FL (9.6-12.0); Monocytes % 1.9 % (1.7-12.7); Neutrophils % 2.3 % (38.7-73.9); Platelet Count 206 T/CUMM (130-400); Red Blood Count 2.39 MC/CUMM (3.8-5.5)
[2018-08-08 12:38] LABS: Hemoglobin 6.1 GM/DL (14.0-18.0); White Blood Count 256.7 T/CUMM (4-12)
[2018-08-08 12:42] LABS: Anisocytosis Slight; Atypical Lymphocytes Few; Lymphocytes 98 % (20-55); Platelet Estimate Normal; Segmented Neutrophils 2 % (50-85); Smudge Cells Many; Total Cells Counted 100
[2018-08-08 13:10] LABS: Alanine Aminotransferase 36 U/L (16-61); Albumin 1.8 G/DL (3.4-5.0); Alkaline Phosphatase 150 U/L (45-117); Aspartate Amino Transferase 33 U/L (0-37); Blood Urea Nitrogen 25 MG/DL (7-18); Calcium 8.3 MG/DL (8.5-10.1); Glucose 100 MG/DL (74-106); Osmolality,Calculated 258.2 MOS/KG (273-304); Total Protein 5.6 G/DL (6.4-8.3); Troponin I < 0.015 NG/ML (0.00-0.045)
[2018-08-08] MEDS: MEROPENEM 1,000 MG in SODIUM CHLORIDE 0.9% 100 ML IV SCH ×2 (14:20→21:59)
[2018-08-08] MEDS ORDERED: LORazepam 2 MG/1 ML VIAL IV ONE (16:46)
[2018-08-08] MEDS ORDERED: LORazepam 2 MG/1 ML VIAL ONE (16:50)
[2018-08-08] MEDS: LORazepam 1 MG TABLET PO PRN (22:11)
[2018-08-09] MEDS: MORPHINE 4 MG/1 ML VIAL IV PRN ×2 (01:47→21:18)
[2018-08-09] MEDS: ONDANSETRON 4 MG/2 ML VIAL IV PRN (01:47)
[2018-08-09] MEDS: ALBUTEROL/IPRATROPIUM 3 ML NEB RESP TX SCH ×6 (03:25→23:30)
[2018-08-09] MEDS: methylPREDNISolone SOD SUC 40 MG/1 ML VIAL IV SCH ×3 (04:33→21:15)
[2018-08-09] MEDS: VANCOMYCIN INJ 1,000 MG in SODIUM CHLORIDE 0.9% 250 ML IV SCH ×2 (05:32→15:14)
[2018-08-09] MEDS: MEROPENEM 1,000 MG in SODIUM CHLORIDE 0.9% 100 ML IV SCH ×3 (05:32→21:14)
[2018-08-09 08:16] LABS: Hematocrit 32.7 VOL% (42.0-52.0); Immature Granulocytes % 0.4 %; Neutrophils % 2.8 % (38.7-73.9); Red Blood Count 3.37 MC/CUMM (3.8-5.5)
[2018-08-09 08:33] LABS: Bilirubin,Total 0.4 MG/DL (0.2-1.0); Calcium 8.9 MG/DL (8.5-10.1); Osmolality,Calculated 264.9 MOS/KG (273-304); Total Protein 6.1 G/DL (6.4-8.3)
[2018-08-09 08:36] LABS: Immature Granulocytes Absolute 1.01 #; Lymphocytes % 95.7 % (21.2-54.2); Mean Corpuscular HGB Conc 26.3 GM/DL (32-36); Mean Platelet Volume 10.7 FL (9.6-12.0); Monocytes % 1.1 % (1.7-12.7); Platelet Count 215 T/CUMM (130-400)
[2018-08-09 08:42] LABS: Hemoglobin 8.6 GM/DL (14.0-18.0); White Blood Count 264.4 T/CUMM (4-12)
[2018-08-09 08:50] LABS: Atypical Lymphocytes Few; Hypochromasia 1+; Lymphocytes 97 % (20-55); Ovalocytes Slight; Platelet Estimate Adequate; Segmented Neutrophils 3 % (50-85); Smudge Cells Many; Total Cells Counted 100
[2018-08-09] MEDS: LORazepam 1 MG TABLET PO PRN ×2 (08:53→18:19)
[2018-08-09] MEDS: ATORVASTATIN 40 MG TABLET PO SCH (08:53)
[2018-08-09] MEDS: PANTOPRAZOLE 40 MG TABLET PO SCH (08:53)
[2018-08-09] MEDS: ASPIRIN EC 81 MG TABLET PO SCH (08:54)
[2018-08-09] MEDS: TAMSULOSIN 0.4 MG CAPSULE PO SCH (08:54)
[2018-08-09] MEDS: ESCITALOPRAM 10 MG TABLET PO SCH (08:54)
[2018-08-09] MEDS: ENOXAPARIN 40 MG/0.4 ML SYRINGE SUBCUT SCH (08:54)
[2018-08-09 08:59] LABS: % Iron Saturation 32.2 % (18-50)
[2018-08-09 18:38] LABS: Folate 23.6 NG/ML (5.4-24.0)
[2018-08-10] MEDS: VANCOMYCIN INJ 1,000 MG in SODIUM CHLORIDE 0.9% 250 ML IV SCH ×2 (00:15→16:36)
[2018-08-10] MEDS: ALBUTEROL/IPRATROPIUM 3 ML NEB RESP TX SCH ×6 (03:37→23:18)
[2018-08-10] MEDS: methylPREDNISolone SOD SUC 40 MG/1 ML VIAL IV SCH ×3 (05:06→20:47)
[2018-08-10] MEDS: MEROPENEM 1,000 MG in SODIUM CHLORIDE 0.9% 100 ML IV SCH ×3 (05:10→22:03)
[2018-08-10] MEDS: MORPHINE 4 MG/1 ML VIAL IV PRN ×2 (05:13→22:03)
[2018-08-10 05:35] LABS: Albumin 1.7 G/DL (3.4-5.0); Bilirubin,Total 0.6 MG/DL (0.2-1.0); Calcium 8.9 MG/DL (8.5-10.1); Osmolality,Calculated 264.8 MOS/KG (273-304); Total Protein 5.3 G/DL (6.4-8.3)
[2018-08-10 05:40] LABS: Immature Granulocytes % 0.3 %; Immature Granulocytes Absolute 0.71 #; Lymphocytes # 258.7 10*3/uL (1.4-4.0); Lymphocytes % 95.6 % (21.2-54.2); Mean Corpuscular HGB Conc 27.6 GM/DL (32-36); Mean Platelet Volume 11.2 FL (9.6-12.0); Monocytes % 1.3 % (1.7-12.7); Neutrophils % 2.8 % (38.7-73.9); Platelet Count 234 T/CUMM (130-400); Red Blood Count 2.99 MC/CUMM (3.8-5.5)
[2018-08-10 05:45] LABS: White Blood Count 270.6 T/CUMM (4-12)
[2018-08-10 06:52] LABS: Atypical Lymphocytes Few; Hypochromasia 1+; Lymphocytes 95 % (20-55); Platelet Estimate Adequate; Segmented Neutrophils 5 % (50-85); Smudge Cells Many; Total Cells Counted 100
[2018-08-10] MEDS ORDERED: SODIUM CHLORIDE 0.9% 1,000 ML IV PRN ×4 (08:21→08:38)
[2018-08-10] MEDS: ENOXAPARIN 40 MG/0.4 ML SYRINGE SUBCUT SCH (09:09)
[2018-08-10] MEDS: LORazepam 1 MG TABLET PO PRN ×2 (09:09→18:15)
[2018-08-10] MEDS: ESCITALOPRAM 10 MG TABLET PO SCH (09:10)
[2018-08-10] MEDS: TAMSULOSIN 0.4 MG CAPSULE PO SCH (09:10)
[2018-08-10] MEDS: ASPIRIN EC 81 MG TABLET PO SCH (09:10)
[2018-08-10] MEDS: ATORVASTATIN 40 MG TABLET PO SCH (09:10)
[2018-08-10] MEDS: PANTOPRAZOLE 40 MG TABLET PO SCH (09:10)
[2018-08-10] MEDS: BENZTROPINE 1 MG TABLET PO SCH (18:30)
[2018-08-10] MEDS: LORazepam 2 MG/1 ML VIAL IV PRN (23:45)
[2018-08-11] MEDS: ALBUTEROL/IPRATROPIUM 3 ML NEB RESP TX SCH ×4 (03:08→15:53)
[2018-08-11] MEDS: MEROPENEM 1,000 MG in SODIUM CHLORIDE 0.9% 100 ML IV SCH ×3 (05:00→21:25)
[2018-08-11] MEDS: methylPREDNISolone SOD SUC 40 MG/1 ML VIAL IV SCH ×3 (05:09→21:24)
[2018-08-11 05:12] LABS: Eosinophils # 0.1 10*3/uL (0.0-0.87); Hemoglobin 10.1 GM/DL (14.0-18.0); Immature Granulocytes % 0.2 %; Immature Granulocytes Absolute 0.57 #; Lymphocytes # 261.7 10*3/uL (1.4-4.0); Lymphocytes % 96.6 % (21.2-54.2); Mean Corpuscular HGB Conc 28.5 GM/DL (32-36); Mean Corpuscular Volume 94.9 FL (87-102); Mean Platelet Volume 10.6 FL (9.6-12.0); Monocytes % 0.8 % (1.7-12.7); NRBC # 0.02 10*3/uL; Neutrophils % 2.4 % (38.7-73.9); Platelet Count 244 T/CUMM (130-400); Red Blood Count 3.73 MC/CUMM (3.8-5.5)
[2018-08-11 05:23] LABS: Hematocrit 34.8 VOL% (42.0-52.0)
[2018-08-11 05:24] LABS: Albumin 1.9 G/DL (3.4-5.0); Bilirubin,Total 0.8 MG/DL (0.2-1.0); Calcium 8.7 MG/DL (8.5-10.1); Osmolality,Calculated 264.8 MOS/KG (273-304); Total Protein 5.5 G/DL (6.4-8.3)
[2018-08-11 06:15] LABS: Atypical Lymphocytes Few; Hypochromasia 1+; Lymphocytes 96 % (20-55); Platelet Estimate Adequate; Segmented Neutrophils 3 % (50-85); Smudge Cells Many; Total Cells Counted 100
[2018-08-11] MEDS ORDERED: LIDOCAINE 2% 20 ML VIAL RESP TX ONE (08:00)
[2018-08-11] MEDS ORDERED: LIDOCAINE 2% VISCOUS 100 ML BOTTLE SWISH/SPIT ONE (08:00)
[2018-08-11] MEDS ORDERED: LIDOCAINE 1% 20 ML VIAL MISC INJ ONE (08:00)
[2018-08-11] MEDS ORDERED: MIDAZOLAM 2 MG/2 ML VIAL IV ONE (08:00)
[2018-08-11] MEDS ORDERED: MIDAZOLAM 2 MG/2 ML VIAL ONE (08:44)
[2018-08-11] MEDS: LORazepam 2 MG/1 ML VIAL IV PRN ×3 (09:53→21:25)
[2018-08-11] MEDS: BENZTROPINE 1 MG TABLET PO SCH ×2 (11:42→21:25)
[2018-08-11] MEDS: ASPIRIN EC 81 MG TABLET PO SCH (11:42)
[2018-08-11] MEDS: ESCITALOPRAM 10 MG TABLET PO SCH (11:42)
[2018-08-11] MEDS: TAMSULOSIN 0.4 MG CAPSULE PO SCH (11:42)
[2018-08-11] MEDS: VANCOMYCIN INJ 1,000 MG in SODIUM CHLORIDE 0.9% 250 ML IV SCH (11:43)
[2018-08-11] MEDS: ATORVASTATIN 40 MG TABLET PO SCH (11:43)
[2018-08-11] MEDS: ENOXAPARIN 40 MG/0.4 ML SYRINGE SUBCUT SCH (11:43)
[2018-08-11] MEDS: PANTOPRAZOLE 40 MG TABLET PO SCH (11:43)
[2018-08-11] MEDS ORDERED: NICOTINE 21 MG/24 HR PATCH TRANSDERM PRN (22:04)
[2018-08-11] MEDS: MORPHINE 4 MG/1 ML VIAL IV PRN (22:18)
[2018-08-12] MEDS: ALBUTEROL/IPRATROPIUM 3 ML NEB RESP TX SCH ×7 (00:05→22:03)
[2018-08-12] MEDS: VANCOMYCIN INJ 1,000 MG in SODIUM CHLORIDE 0.9% 250 ML IV SCH (04:25)
[2018-08-12] MEDS: methylPREDNISolone SOD SUC 40 MG/1 ML VIAL IV SCH (04:25)
[2018-08-12] MEDS: LORazepam 2 MG/1 ML VIAL IV PRN ×2 (04:31→21:53)
[2018-08-12] MEDS: MORPHINE 4 MG/1 ML VIAL IV PRN ×4 (04:31→21:53)
[2018-08-12 04:54] LABS: Albumin 1.9 G/DL (3.4-5.0); Bilirubin,Total 0.5 MG/DL (0.2-1.0); Calcium 8.9 MG/DL (8.5-10.1); Osmolality,Calculated 267.5 MOS/KG (273-304); Total Protein 5.2 G/DL (6.4-8.3)
[2018-08-12 04:57] LABS: Hematocrit 36.8 VOL% (42.0-52.0); Hemoglobin 10.6 GM/DL (14.0-18.0); Immature Granulocytes % 0.2 %; Immature Granulocytes Absolute 0.63 #; Lymphocytes % 96.1 % (21.2-54.2); Mean Corpuscular HGB Conc 28.8 GM/DL (32-36); Mean Corpuscular Volume 95.8 FL (87-102); Mean Platelet Volume 10.8 FL (9.6-12.0); Neutrophils % 2.7 % (38.7-73.9); Platelet Count 207 T/CUMM (130-400); Red Blood Count 3.84 MC/CUMM (3.8-5.5)
[2018-08-12 05:17] LABS: Atypical Lymphocytes Few; Hypochromasia 1+; Lymphocytes 90 % (20-55); Platelet Estimate Adequate; Segmented Neutrophils 10 % (50-85); Total Cells Counted 100
[2018-08-12] MEDS: MEROPENEM 1,000 MG in SODIUM CHLORIDE 0.9% 100 ML IV SCH ×3 (06:31→22:03)
[2018-08-12] MEDS: LORazepam 1 MG TABLET PO PRN (07:39)
[2018-08-12] MEDS: methylPREDNISolone SOD SUC 125 MG/2 ML VIAL IV SCH ×2 (10:00→21:52)
[2018-08-12] MEDS: ASPIRIN EC 81 MG TABLET PO SCH (11:36)
[2018-08-12] MEDS: TAMSULOSIN 0.4 MG CAPSULE PO SCH (11:36)
[2018-08-12] MEDS: ATORVASTATIN 40 MG TABLET PO SCH (11:36)
[2018-08-12] MEDS: ESCITALOPRAM 10 MG TABLET PO SCH (11:36)
[2018-08-12] MEDS: BENZTROPINE 1 MG TABLET PO SCH ×2 (11:36→21:52)
[2018-08-12] MEDS: PANTOPRAZOLE 40 MG TABLET PO SCH (11:37)
[2018-08-12] MEDS: ENOXAPARIN 40 MG/0.4 ML SYRINGE SUBCUT SCH (11:39)
[2018-08-12] MEDS: FLUCONAZOLE 40 MG/ML 35 ML/BOTTLE PO SCH (17:45)
[2018-08-13] MEDS: VANCOMYCIN INJ 1,000 MG in SODIUM CHLORIDE 0.9% 250 ML IV SCH ×2 (00:48→14:00)
[2018-08-13] MEDS: ALBUTEROL/IPRATROPIUM 3 ML NEB RESP TX SCH ×7 (01:00→22:42)
[2018-08-13 05:37] LABS: Albumin 2.1 G/DL (3.4-5.0); Bilirubin,Total 0.7 MG/DL (0.2-1.0); Calcium 9.1 MG/DL (8.5-10.1); Osmolality,Calculated 266.7 MOS/KG (273-304); Total Protein 5.6 G/DL (6.4-8.3)
[2018-08-13] MEDS: MEROPENEM 1,000 MG in SODIUM CHLORIDE 0.9% 100 ML IV SCH ×3 (06:00→21:15)
[2018-08-13] MEDS: LORazepam 2 MG/1 ML VIAL IV PRN ×3 (06:05→20:45)
[2018-08-13] MEDS: MORPHINE 4 MG/1 ML VIAL IV PRN ×2 (06:07→20:45)
[2018-08-13 06:41] LABS: Basophils # 0.1 10*3/uL (0.0-0.2); Hematocrit 41.6 VOL% (42.0-52.0); Immature Granulocytes % 0.4 %; Immature Granulocytes Absolute 1.07 #; Lymphocytes # 267.9 10*3/uL (1.4-4.0); Mean Corpuscular HGB Conc 26.4 GM/DL (32-36); Mean Corpuscular Volume 98.1 FL (87-102); Mean Platelet Volume 10.7 FL (9.6-12.0); Monocytes % 0.9 % (1.7-12.7); Neutrophils % 2.7 % (38.7-73.9); Platelet Count 232 T/CUMM (130-400); Red Blood Count 4.24 MC/CUMM (3.8-5.5)
[2018-08-13 06:50] LABS: Lymphocytes 94 % (20-55); Platelet Estimate Normal; Segmented Neutrophils 5 % (50-85); Total Cells Counted 100
[2018-08-13 06:52] LABS: Hypochromasia 1+
[2018-08-13 06:54] LABS: Atypical Lymphocytes Few
[2018-08-13] MEDS: ESCITALOPRAM 10 MG TABLET PO SCH (09:29)
[2018-08-13] MEDS: ATORVASTATIN 40 MG TABLET PO SCH (09:29)
[2018-08-13] MEDS: TAMSULOSIN 0.4 MG CAPSULE PO SCH (09:30)
[2018-08-13] MEDS: BENZTROPINE 1 MG TABLET PO SCH ×2 (09:30→21:15)
[2018-08-13] MEDS: PANTOPRAZOLE 40 MG TABLET PO SCH (09:31)
[2018-08-13] MEDS: ASPIRIN EC 81 MG TABLET PO SCH (09:31)
[2018-08-13] MEDS: ENOXAPARIN 40 MG/0.4 ML SYRINGE SUBCUT SCH (09:34)
[2018-08-13] MEDS: methylPREDNISolone SOD SUC 125 MG/2 ML VIAL IV SCH ×2 (09:38→21:15)
[2018-08-13] MEDS: FLUCONAZOLE 40 MG/ML 35 ML/BOTTLE PO SCH (09:44)
[2018-08-13] MEDS ORDERED: LORazepam 2 MG/1 ML VIAL ONE (11:36)
[2018-08-14] MEDS: VANCOMYCIN INJ 1,000 MG in SODIUM CHLORIDE 0.9% 250 ML IV SCH ×2 (03:35→12:37)
[2018-08-14] MEDS: MORPHINE 4 MG/1 ML VIAL IV PRN ×2 (03:36→20:30)
[2018-08-14] MEDS: LORazepam 2 MG/1 ML VIAL IV PRN ×3 (03:36→20:30)
[2018-08-14] MEDS: ALBUTEROL/IPRATROPIUM 3 ML NEB RESP TX SCH ×6 (03:44→22:40)
[2018-08-14 05:18] LABS: Albumin 1.8 G/DL (3.4-5.0); Bilirubin,Total 0.5 MG/DL (0.2-1.0); Calcium 8.3 MG/DL (8.5-10.1); Osmolality,Calculated 266.7 MOS/KG (273-304); Total Protein 4.6 G/DL (6.4-8.3)
[2018-08-14 05:25] LABS: Immature Granulocytes % 0.3 %; Immature Granulocytes Absolute 0.74 #; Lymphocytes % 96.1 % (21.2-54.2); Mean Corpuscular HGB Conc 27.3 GM/DL (32-36); Mean Corpuscular Volume 95.4 FL (87-102); Mean Platelet Volume 10.6 FL (9.6-12.0); Monocytes % 0.8 % (1.7-12.7); Neutrophils % 2.8 % (38.7-73.9); Platelet Count 212 T/CUMM (130-400); Red Blood Count 3.88 MC/CUMM (3.8-5.5); Red Cell Distribution Width 17.6 % (9.3-17.3)
[2018-08-14 05:32] LABS: Hemoglobin 10.1 GM/DL (14.0-18.0)
[2018-08-14 05:37] LABS: Hypochromasia Slight; Lymphocytes 96 % (20-55); Platelet Estimate Adequate; Segmented Neutrophils 3 % (50-85); Smudge Cells Few; Total Cells Counted 100
[2018-08-14] MEDS: MEROPENEM 1,000 MG in SODIUM CHLORIDE 0.9% 100 ML IV SCH ×3 (06:57→21:12)
[2018-08-14] MEDS: BENZTROPINE 1 MG TABLET PO SCH ×2 (09:24→21:12)
[2018-08-14] MEDS: ATORVASTATIN 40 MG TABLET PO SCH (09:24)
[2018-08-14] MEDS: ESCITALOPRAM 10 MG TABLET PO SCH (09:25)
[2018-08-14] MEDS: TAMSULOSIN 0.4 MG CAPSULE PO SCH (09:25)
[2018-08-14] MEDS: PANTOPRAZOLE 40 MG TABLET PO SCH (09:26)
[2018-08-14] MEDS: ASPIRIN EC 81 MG TABLET PO SCH (09:26)
[2018-08-14] MEDS: ENOXAPARIN 40 MG/0.4 ML SYRINGE SUBCUT SCH (09:29)
[2018-08-14] MEDS: methylPREDNISolone SOD SUC 125 MG/2 ML VIAL IV SCH ×2 (09:31→21:12)
[2018-08-14] MEDS: FLUCONAZOLE 40 MG/ML 35 ML/BOTTLE PO SCH (09:37)
[2018-08-14] MEDS: ACETYLCYSTEINE 20% 800 MG/4 ML VIAL RESP TX SCH ×2 (12:10→18:56)
[2018-08-14] MEDS ORDERED: LORazepam 2 MG/1 ML VIAL ONE (12:22)
[2018-08-14] MEDS ORDERED: ACETYLCYSTEINE 20% 800 MG/4 ML VIAL RESP TX SCH (15:00)
[2018-08-15] MEDS: MORPHINE 4 MG/1 ML VIAL IV PRN ×2 (00:30→05:30)
[2018-08-15] MEDS: VANCOMYCIN INJ 1,000 MG in SODIUM CHLORIDE 0.9% 250 ML IV SCH ×2 (00:35→13:33)
[2018-08-15] MEDS: ALBUTEROL/IPRATROPIUM 3 ML NEB RESP TX SCH ×6 (02:20→23:50)
[2018-08-15] MEDS: LORazepam 2 MG/1 ML VIAL IV PRN ×2 (04:01→10:19)
[2018-08-15 05:00] LABS: Albumin 2.1 G/DL (3.4-5.0); Bilirubin,Total 0.8 MG/DL (0.2-1.0); Calcium 8.5 MG/DL (8.5-10.1); Osmolality,Calculated 268.5 MOS/KG (273-304); Total Protein 4.9 G/DL (6.4-8.3)
[2018-08-15 05:11] LABS: Basophils # 0.1 10*3/uL (0.0-0.2); Hematocrit 36.3 VOL% (42.0-52.0); Hemoglobin 10.7 GM/DL (14.0-18.0); Immature Granulocytes % 0.2 %; Immature Granulocytes Absolute 0.52 #; Lymphocytes # 225.7 10*3/uL (1.4-4.0); Mean Corpuscular HGB Conc 29.5 GM/DL (32-36); Mean Corpuscular Volume 94.8 FL (87-102); Mean Platelet Volume 10.6 FL (9.6-12.0); Monocytes % 0.6 % (1.7-12.7); Neutrophils % 3.2 % (38.7-73.9); Platelet Count 211 T/CUMM (130-400); Red Blood Count 3.83 MC/CUMM (3.8-5.5)
[2018-08-15 05:13] LABS: White Blood Count 235.1 T/CUMM (4-12)
[2018-08-15 05:17] LABS: Atypical Lymphocytes Few; Hypochromasia 1+; Lymphocytes 93 % (20-55); Platelet Estimate Adequate; Segmented Neutrophils 7 % (50-85); Smudge Cells Many; Total Cells Counted 100
[2018-08-15] MEDS: MEROPENEM 1,000 MG in SODIUM CHLORIDE 0.9% 100 ML IV SCH ×3 (06:40→21:25)
[2018-08-15] MEDS: ACETYLCYSTEINE 20% 800 MG/4 ML VIAL RESP TX SCH ×3 (07:36→19:20)
[2018-08-15] MEDS: methylPREDNISolone SOD SUC 125 MG/2 ML VIAL IV SCH ×2 (09:53→21:23)
[2018-08-15] MEDS: ENOXAPARIN 40 MG/0.4 ML SYRINGE SUBCUT SCH (09:53)
[2018-08-15] MEDS: ASPIRIN EC 81 MG TABLET PO SCH (09:55)
[2018-08-15] MEDS: ESCITALOPRAM 10 MG TABLET PO SCH (09:55)
[2018-08-15] MEDS: FLUCONAZOLE 40 MG/ML 35 ML/BOTTLE PO SCH (09:55)
[2018-08-15] MEDS: BENZTROPINE 1 MG TABLET PO SCH ×2 (09:55→21:25)
[2018-08-15] MEDS: TAMSULOSIN 0.4 MG CAPSULE PO SCH (09:56)
[2018-08-15] MEDS: ATORVASTATIN 40 MG TABLET PO SCH (09:56)
[2018-08-15] MEDS: PANTOPRAZOLE 40 MG TABLET PO SCH (09:56)
[2018-08-16] MEDS: VANCOMYCIN INJ 1,000 MG in SODIUM CHLORIDE 0.9% 250 ML IV SCH ×3 (00:14→23:41)
[2018-08-16] MEDS: LORazepam 2 MG/1 ML VIAL IV PRN (00:35)
[2018-08-16] MEDS: ALBUTEROL/IPRATROPIUM 3 ML NEB RESP TX SCH ×5 (03:15→19:15)
[2018-08-16 04:32] LABS: Calcium 8.5 MG/DL (8.5-10.1); Osmolality,Calculated 263.8 MOS/KG (273-304)
[2018-08-16 06:07] LABS: Basophils # 0.1 10*3/uL (0.0-0.2); Hematocrit 36.8 VOL% (42.0-52.0); Hemoglobin 10.7 GM/DL (14.0-18.0); Immature Granulocytes % 0.3 %; Immature Granulocytes Absolute 0.57 #; Lymphocytes # 215.9 10*3/uL (1.4-4.0); Lymphocytes % 95.8 % (21.2-54.2); Mean Corpuscular HGB Conc 29.1 GM/DL (32-36); Mean Corpuscular Volume 95.3 FL (87-102); Mean Platelet Volume 10.6 FL (9.6-12.0); Monocytes % 0.8 % (1.7-12.7); Neutrophils % 3.1 % (38.7-73.9); Platelet Count 193 T/CUMM (130-400); Red Blood Count 3.86 MC/CUMM (3.8-5.5)
[2018-08-16 06:09] LABS: White Blood Count 225.4 T/CUMM (4-12)
[2018-08-16 06:12] LABS: Atypical Lymphocytes Few; Hypochromasia 1+; Lymphocytes 95 % (20-55); Platelet Estimate Adequate; Segmented Neutrophils 5 % (50-85); Smudge Cells Many; Total Cells Counted 100
[2018-08-16] MEDS: ACETYLCYSTEINE 20% 800 MG/4 ML VIAL RESP TX SCH (06:56)
[2018-08-16] MEDS ORDERED: MORPHINE 4 MG/1 ML VIAL IV PRN (08:25)
[2018-08-16] MEDS: ASPIRIN EC 81 MG TABLET PO SCH (08:42)
[2018-08-16] MEDS: ENOXAPARIN 40 MG/0.4 ML SYRINGE SUBCUT SCH (08:42)
[2018-08-16] MEDS: ESCITALOPRAM 10 MG TABLET PO SCH (08:42)
[2018-08-16] MEDS: TAMSULOSIN 0.4 MG CAPSULE PO SCH (08:42)
[2018-08-16] MEDS: PANTOPRAZOLE 40 MG TABLET PO SCH (08:42)
[2018-08-16] MEDS: methylPREDNISolone SOD SUC 125 MG/2 ML VIAL IV SCH ×2 (08:42→20:12)
[2018-08-16] MEDS: ATORVASTATIN 40 MG TABLET PO SCH (08:42)
[2018-08-16] MEDS: BENZTROPINE 1 MG TABLET PO SCH ×2 (08:42→20:11)
[2018-08-16] MEDS: MEROPENEM 1,000 MG in SODIUM CHLORIDE 0.9% 100 ML IV SCH ×3 (08:43→23:44)
[2018-08-16] MEDS: DORNASE ALFA 2.5 MG/2.5 ML VIAL RESP TX SCH ×2 (08:53→19:15)
[2018-08-16] MEDS: FLUCONAZOLE 40 MG/ML 35 ML/BOTTLE PO SCH (09:50)
[2018-08-17] MEDS: ALBUTEROL/IPRATROPIUM 3 ML NEB RESP TX SCH ×7 (00:10→23:41)
[2018-08-17 03:48] LABS: Hematocrit 36.9 VOL% (42.0-52.0); Hemoglobin 10.6 GM/DL (14.0-18.0); Immature Granulocytes % 0.2 %; Immature Granulocytes Absolute 0.58 #; Lymphocytes % 96.2 % (21.2-54.2); Mean Corpuscular HGB Conc 28.7 GM/DL (32-36); Mean Corpuscular Volume 94.9 FL (87-102); Mean Platelet Volume 10.5 FL (9.6-12.0); Monocytes % 0.5 % (1.7-12.7); Neutrophils % 3.1 % (38.7-73.9); Platelet Count 195 T/CUMM (130-400); Red Blood Count 3.89 MC/CUMM (3.8-5.5); Red Cell Distribution Width 17.5 % (9.3-17.3)
[2018-08-17 04:02] LABS: White Blood Count 233.9 T/CUMM (4-12)
[2018-08-17 04:22] LABS: Osmolality,Calculated 265.7 MOS/KG (273-304)
[2018-08-17 04:28] LABS: Albumin 2.1 G/DL (3.4-5.0); Bilirubin,Total 0.6 MG/DL (0.2-1.0); Calcium 8.5 MG/DL (8.5-10.1); Total Protein 4.6 G/DL (6.4-8.3)
[2018-08-17 04:29] LABS: Osmolality,Calculated 264.7 MOS/KG (273-304)
[2018-08-17 04:33] LABS: Band Neutrophils 2 % (0-10); Lymphocytes 95 % (20-55); Platelet Estimate Normal; Segmented Neutrophils 3 % (50-85); Smudge Cells Many; Total Cells Counted 100
[2018-08-17 04:34] LABS: Atypical Lymphocytes 2+; Reactive Lymphocytes 2+
[2018-08-17] MEDS ORDERED: HALOPERIDOL 5 MG/ML AMP IM ONE (07:53)
[2018-08-17] MEDS: DORNASE ALFA 2.5 MG/2.5 ML VIAL RESP TX SCH ×2 (08:12→19:17)
[2018-08-17] MEDS ORDERED: MAGNESIUM SULF RIDER 4 GM in PREMIX 1 EACH IV PRN (08:42)
[2018-08-17] MEDS ORDERED: MAGNESIUM SULF RIDER 2 GM in PREMIX 1 EACH IV PRN (08:42)
[2018-08-17] MEDS: MEROPENEM 1,000 MG in SODIUM CHLORIDE 0.9% 100 ML IV SCH ×2 (08:48→17:04)
[2018-08-17] MEDS: TAMSULOSIN 0.4 MG CAPSULE PO SCH (08:50)
[2018-08-17] MEDS: ATORVASTATIN 40 MG TABLET PO SCH (08:50)
[2018-08-17] MEDS: methylPREDNISolone SOD SUC 125 MG/2 ML VIAL IV SCH ×2 (08:50→21:16)
[2018-08-17] MEDS: PANTOPRAZOLE 40 MG TABLET PO SCH (08:50)
[2018-08-17] MEDS: BENZTROPINE 1 MG TABLET PO SCH ×2 (08:51→21:15)
[2018-08-17] MEDS: ESCITALOPRAM 10 MG TABLET PO SCH (08:51)
[2018-08-17] MEDS: ENOXAPARIN 40 MG/0.4 ML SYRINGE SUBCUT SCH (08:52)
[2018-08-17] MEDS: FLUCONAZOLE 40 MG/ML 35 ML/BOTTLE PO SCH (08:55)
[2018-08-17] MEDS: ASPIRIN EC 81 MG TABLET PO SCH (09:06)
[2018-08-17] MEDS ORDERED: LORazepam 2 MG/1 ML VIAL ONE (11:06)
[2018-08-17] MEDS: LORazepam 2 MG/1 ML VIAL IV PRN (11:10)
[2018-08-17] MEDS: VANCOMYCIN INJ 1,000 MG in SODIUM CHLORIDE 0.9% 250 ML IV SCH (13:29)
[2018-08-17] MEDS: CARVEDILOL 3.125 MG TABLET PO SCH (17:05)
[2018-08-18] MEDS: VANCOMYCIN INJ 1,000 MG in SODIUM CHLORIDE 0.9% 250 ML IV SCH ×2 (00:23→16:55)
[2018-08-18] MEDS: MEROPENEM 1,000 MG in SODIUM CHLORIDE 0.9% 100 ML IV SCH ×3 (00:25→19:06)
[2018-08-18] MEDS: ALBUTEROL/IPRATROPIUM 3 ML NEB RESP TX SCH ×6 (03:31→23:05)
[2018-08-18 04:24] LABS: Basophils # 0.1 10*3/uL (0.0-0.2); Hematocrit 36.1 VOL% (42.0-52.0); Hemoglobin 10.7 GM/DL (14.0-18.0); Immature Granulocytes % 0.2 %; Immature Granulocytes Absolute 0.49 #; Lymphocytes # 207.3 10*3/uL (1.4-4.0); Lymphocytes % 94.9 % (21.2-54.2); Mean Corpuscular HGB Conc 29.6 GM/DL (32-36); Mean Corpuscular Volume 94.5 FL (87-102); Mean Platelet Volume 10.8 FL (9.6-12.0); Monocytes % 1.8 % (1.7-12.7); NRBC # 0.06 10*3/uL; Neutrophils % 3.1 % (38.7-73.9); Platelet Count 174 T/CUMM (130-400); Red Blood Count 3.82 MC/CUMM (3.8-5.5); Red Cell Distribution Width 17.5 % (9.3-17.3)
[2018-08-18 04:26] LABS: White Blood Count 218.5 T/CUMM (4-12)
[2018-08-18 04:31] LABS: Albumin 1.9 G/DL (3.4-5.0); Bilirubin,Total 0.9 MG/DL (0.2-1.0); Calcium 8.4 MG/DL (8.5-10.1); Osmolality,Calculated 263.7 MOS/KG (273-304); Total Protein 4.6 G/DL (6.4-8.3)
[2018-08-18 05:17] LABS: Atypical Lymphocytes 1+; Hypochromasia 1+; Lymphocytes 93 % (20-55); Platelet Estimate Adequate; Segmented Neutrophils 7 % (50-85); Smudge Cells Many; Total Cells Counted 100
[2018-08-18] MEDS ORDERED: MEPERIDINE 50 MG/1 ML VIAL IM ONE (07:00)
[2018-08-18] MEDS ORDERED: PROMETHAZINE 25 MG/1 ML VIAL IM ONE (07:00)
[2018-08-18] MEDS ORDERED: MIDAZOLAM 10 MG/2 ML VIAL ONE (07:29)
[2018-08-18] MEDS ORDERED: LIDOCAINE 1% 20 ML VIAL MISC INJ ONE (07:30)
[2018-08-18] MEDS ORDERED: LIDOCAINE 2% 20 ML VIAL RESP TX ONE (07:30)
[2018-08-18] MEDS ORDERED: LIDOCAINE 2% VISCOUS 100 ML BOTTLE SWISH/SPIT ONE (07:30)
[2018-08-18] MEDS ORDERED: MIDAZOLAM 2 MG/2 ML VIAL IV ONE (07:30)
[2018-08-18] MEDS: DORNASE ALFA 2.5 MG/2.5 ML VIAL RESP TX SCH ×2 (08:22→20:12)
[2018-08-18] MEDS: FLUCONAZOLE 40 MG/ML 35 ML/BOTTLE PO SCH (09:10)
[2018-08-18] MEDS: PANTOPRAZOLE 40 MG TABLET PO SCH (09:10)
[2018-08-18] MEDS: methylPREDNISolone SOD SUC 125 MG/2 ML VIAL IV SCH ×2 (09:37→22:55)
[2018-08-18] MEDS: ENOXAPARIN 40 MG/0.4 ML SYRINGE SUBCUT SCH (09:38)
[2018-08-18] MEDS: BENZTROPINE 1 MG TABLET PO SCH ×2 (09:39→22:55)
[2018-08-18] MEDS: ESCITALOPRAM 10 MG TABLET PO SCH (09:39)
[2018-08-18] MEDS: ASPIRIN EC 81 MG TABLET PO SCH (09:39)
[2018-08-18] MEDS: ATORVASTATIN 40 MG TABLET PO SCH (09:39)
[2018-08-18] MEDS: TAMSULOSIN 0.4 MG CAPSULE PO SCH (09:39)
[2018-08-18] MEDS: CARVEDILOL 3.125 MG TABLET PO SCH ×2 (09:40→19:07)
[2018-08-18] MEDS ORDERED: LORazepam 2 MG/1 ML VIAL IV PRN (15:55)
[2018-08-18] MEDS ORDERED: LORazepam 2 MG/1 ML VIAL ONE (16:44)
[2018-08-18] MEDS: CARVEDILOL 6.25 MG TABLET PO SCH (21:30)
[2018-08-19] MEDS: MEROPENEM 1,000 MG in SODIUM CHLORIDE 0.9% 100 ML IV SCH ×2 (00:50→09:11)
[2018-08-19] MEDS: VANCOMYCIN INJ 1,000 MG in SODIUM CHLORIDE 0.9% 250 ML IV SCH (01:30)
[2018-08-19] MEDS: ALBUTEROL/IPRATROPIUM 3 ML NEB RESP TX SCH ×3 (03:46→10:43)
[2018-08-19 05:10] LABS: Hemoglobin 10.9 GM/DL (14.0-18.0); Immature Granulocytes % 0.4 %; Immature Granulocytes Absolute 0.85 #; Lymphocytes # 212.6 10*3/uL (1.4-4.0); Lymphocytes % 95.5 % (21.2-54.2); Mean Corpuscular HGB Conc 27.6 GM/DL (32-36); Mean Corpuscular Volume 96.3 FL (87-102); Mean Platelet Volume 10.8 FL (9.6-12.0); Monocytes % 1.1 % (1.7-12.7); Platelet Count 164 T/CUMM (130-400); Red Cell Distribution Width 17.9 % (9.3-17.3)
[2018-08-19 05:33] LABS: Calcium 8.5 MG/DL (8.5-10.1); Osmolality,Calculated 262.8 MOS/KG (273-304)
[2018-08-19 05:39] LABS: Hematocrit 38.5 VOL% (42.0-52.0)
[2018-08-19 05:41] LABS: White Blood Count 222.7 T/CUMM (4-12)
[2018-08-19 05:45] LABS: Atypical Lymphocytes Few; Hypochromasia 1+; Lymphocytes 92 % (20-55); Platelet Estimate Adequate; Segmented Neutrophils 8 % (50-85); Smudge Cells Many; Total Cells Counted 100
[2018-08-19 06:10] LABS: Calcium 8.3 MG/DL (8.5-10.1); Osmolality,Calculated 262.7 MOS/KG (273-304); Total Protein 4.8 G/DL (6.4-8.3)
[2018-08-19] MEDS: DORNASE ALFA 2.5 MG/2.5 ML VIAL RESP TX SCH (07:11)
[2018-08-19] MEDS: CARVEDILOL 6.25 MG TABLET PO SCH ×2 (09:11→10:43)
[2018-08-19] MEDS: ENOXAPARIN 40 MG/0.4 ML SYRINGE SUBCUT SCH (09:12)
[2018-08-19] MEDS: ASPIRIN EC 81 MG TABLET PO SCH (09:12)
[2018-08-19] MEDS: TAMSULOSIN 0.4 MG CAPSULE PO SCH (09:12)
[2018-08-19] MEDS: PANTOPRAZOLE 40 MG TABLET PO SCH (09:12)
[2018-08-19] MEDS: ESCITALOPRAM 10 MG TABLET PO SCH (09:12)
[2018-08-19] MEDS: ATORVASTATIN 40 MG TABLET PO SCH (09:12)
[2018-08-19] MEDS: BENZTROPINE 1 MG TABLET PO SCH (09:12)
[2018-08-19] MEDS: methylPREDNISolone SOD SUC 125 MG/2 ML VIAL IV SCH (09:13)
[2018-08-19] MEDS: FLUCONAZOLE 40 MG/ML 35 ML/BOTTLE PO SCH (10:34)
[2018-08-19 12:20] VITALS: BP 108/75
== END 2018-08-19 12:45 | DRG 193 ==
LOC: N.ED 18:49 → N.EDINP 22:00 → SUATTDRO 22:00 → N.TELES 23:24 → N.ICU 08-08 11:57
PROVIDERS: ADMIT Internal Medicine; ATTEND Internal Medicine Geriatric Medicine
PROC: BRONCHB (2018-08-11 09:50)